=== PATIENT | female | born 1975 | race Caucasian/White ===

== ENCOUNTER 2017-01-31 19:27 | Emergency (ER) | payer MEDICAID ==
[2017-01-31] MEDS ORDERED: Metoprolol Tartrate 25 MG Tab PO ONE (20:27)
[2017-01-31] MEDS ORDERED: Ketorolac 30 MG/ML SDV IVPUSH ONE (20:28)
[2017-01-31] MEDS ORDERED: Sodium Chloride 0.9% 1,000 ML IV ONE (20:28)
[2017-01-31 20:31] LABS: CHLORIDE,CL 103 mmol/L (98-107); SODIUM,NA 139 mmol/L (136-145)
--- NOTE | 2017-01-31 20:38 | EDM.PDOC ---
ED HPI GENERAL MEDICAL PROBLEM - General Chief Complaint: General Stated Complaint: right shoulder,arm,extremity pain Time Seen by Provider: 01/31/17 19:43 Source of Information: Reports: Patient History Limitations: Reports: No Limitations - History of Present Illness INITIAL COMMENTS - FREE TEXT/NARRATIVE: Patient is essentially here for complaint of pain in right arm/shoulder/neck/ pectoral area. She thinks the pain was triggered when she was lifting heavy boxes at food back over a week ago. She has had the exact same pain before and was seen by Eyal Packer for this. At that time xrays of shoulder and neck were taken. Eventually pain resolved with conservative treatment. She does however mention having other intermittent issues during interview and ROS. These include: Intermittent sensation SOB. She felt a bit SOB in ER however O2 sats at 99-100% on room air. Sometimes gets nausea with this. Intermittent sharp brief pains in abdomen that last a minutes then go away. No specific timing or trigger. The pain "moves around a bit" prior to total resolution. She says it reminders her of her ovarian cysts that burst in the past. She denies having any nausea/emesis/stool change in association with pain. Intermittent spells where she has problems with a cough and choking sensation while eating. She "can't breathe" when they occur. Eventually she coughs so hard she sees stars and looses control of bowels. They resolve on own. Intermittent reflux like discomfort at night. Has continuing issues with puffiness/swelling of lower legs and hands that comes and goes. Patient is morbidly obese. History of hypertension, bipolar disorder, anxiety, diarrhea mixed with constipation. History of smoking. History of non- compliance. Was on BP meds in past but stopped them and has not been seen by a primary provider in quite some time for routine medical and preventive care. Her reason was lack of medical insurance. She now however does have medical insurance but has not been seen. right shoulder/arm/right chest Pain Score (Numeric/FACES): 10 - Related Data Allergies Allergy/AdvReac Type Severity Reaction Status Date / Time animal dander Allergy Other Verified 01/31/17 20:11 pollen extracts Allergy Sneezing Verified 01/31/17 19:29 Home Meds: Home Meds Albuterol [Take Home: Albuterol 6.7 GM, 1 INH Pack] 2 puff INH ASDIRECTED PRN [History] Calcium Carbonate [Tums] 1,000 mg PO Q2HR PRN 01/31/17 [History] Cyclobenzaprine [Flexeril] 10 mg PO TID PRN #20 tablet 01/31/17 [Rx] Ibuprofen 600 mg PO Q4HR PRN 01/31/17 [History] Naproxen Sodium [Aleve] 3 tab PO Q4HR PRN 01/31/17 [History] diphenhydrAMINE [Benadryl] 25 mg PO Q6H PRN 01/31/17 [History] traMADol [Ultram] 50 mg PO Q6H PRN #16 tablet 01/31/17 [Rx] Past Medical History Cardiovascular History: Reports: Hypertension Respiratory History: Reports: SOB Gastrointestinal History: Reports: Chronic Constipation, Chronic Diarrhea Musculoskeletal History: Reports: Other (See Below) (intermitent episodes of right neck/shoulder/arm pain) Psychiatric History: Reports: Anxiety, Bipolar Endocrine/Metabolic History: Reports: Obesity/BMI 30+ Social & Family History - Tobacco Use Years of Tobacco use: 7 - Alcohol Use Days Per Week of Alcohol Use: 1 - Recreational Drug Use Recreational Drug Use: No ED ROS GENERAL - Review of Systems Review Of Systems: See Below Constitutional: Reports: No Symptoms. Denies: Fever, Weakness, Fatigue, Night Sweats, Diaphoresis, Decreased Appetite, Weight Loss, Weight Gain HEENT: Reports: No Symptoms Respiratory: Reports: Shortness of Breath, Cough (has chronic cough). Denies: Wheezing, Pleuritic Chest Pain, Sputum, Hemoptysis Cardiovascular: Reports: Chest Pain (right pectoral area), Blood Pressure Problem, Edema (chronic waxing/waning ). Denies: Lightheadedness, Palpitations , PND, Syncope GI/Abdominal: Reports: Abdominal Pain (intermittent, see HPI. not present at this time. ), Constipation, Diarrhea, Nausea. Denies: Black Stool, Bloody Stool , Difficulty Swallowing, Hematemesis, Hematochezia, Melena, Vomiting : Reports: No Symptoms Musculoskeletal: Reports: Neck Pain, Shoulder Pain, Arm Pain (right), Muscle Stiffness. Denies: Back Pain, Leg Pain, Foot Pain, Joint Swelling Skin: Reports: No Symptoms Neurological: Reports: No Symptoms. Denies: Headache, Numbness, Paresthesia, Change in Speech Psychiatric: Reports: Anxiety ED EXAM, GENERAL - Physical Exam Exam: See Below Exam Limited By: No Limitations General Appearance: Alert, WD/WN, No Apparent Distress, Obese Eye Exam: Bilateral Eye: EOMI, PERRL Ears: Normal External Exam, Normal Canal Nose: Normal Inspection Throat/Mouth: Normal Inspection, Normal Lips, Normal Oropharynx, Normal Voice, No Airway Compromise Head: Atraumatic, Normocephalic Neck: Normal Inspection, Supple, Non-Tender, Full Range of Motion. No: Lymphadenopathy (L), Lymphadenopathy (R) Respiratory/Chest: No Respiratory Distress, Lungs Clear, Normal Breath Sounds, No Accessory Muscle Use, Chest Non-Tender Cardiovascular: Normal Peripheral Pulses, Regular Rate, Rhythm, No Murmur Peripheral Pulses: 2+: Radial (L), Radial (R) GI/Abdominal: Normal Bowel Sounds, Soft, Non-Tender (Female) Exam: Deferred Rectal (Female) Exam: Deferred Back Exam: Normal Inspection. No: CVA Tenderness (L), CVA Tenderness (R), Muscle Spasm, Paraspinal Tenderness, Vertebral Tenderness Extremities: Normal Range of Motion, Non-Tender, Pedal Edema (Patient is obese but also has mild bilateral edema). No: Joint Swelling, Increased Warmth Neurological: Alert, Oriented, Normal Cognition, Normal Gait, Normal Reflexes, No Motor/Sensory Deficits Psychiatric: Normal Affect, Normal Mood Skin Exam: Warm, Dry, Intact, Normal Color EKG INTERPRETATION EKG Date: 01/31/17 Time: 19:51 Rhythm: NSR Rate (Beats/Min): 97 Connell: Normal P-Wave: Present QRS: Other (mild conduction delay noted in I, III, AVL. This was not present in Patient's EKG from several years ago) ST-T: Normal QT: Normal Comparison: Change From Previous EKG Course - Vital Signs Last Recorded V/S: Last Vital Signs Temp 36.9 C 01/31/17 19:38 Pulse 87 01/31/17 20:42 Resp 19 01/31/17 20:40 BP 168/100 H 01/31/17 20:42 Pulse Ox 100 01/31/17 20:40 - Orders/Labs/Meds Orders: Active Orders 24 hr Category Date Time Status EKG Documentation Completion [RC] ASDIRECTED Care 01/31/17 19:58 Active Abdomen 2V AP Flat Upright [CR] Stat Exams 01/31/17 20:24 Ordered Chest 2V [CR] Stat Exams 01/31/17 19:57 Ordered UA W/MICROSCOPIC [URIN] Stat Lab 01/31/17 19:57 Uncollected Sodium Chloride 0.9% [Saline Flush] Med 01/31/17 19:57 Active 10 ml FLUSH ASDIRECTED PRN Saline Lock Insert [OM.PC] Stat Oth 01/31/17 19:57 Ordered EKG 12 Lead [EK] Stat Ther 01/31/17 19:58 Ordered Medication Orders Sodium Chloride (Saline Flush) 10 ml FLUSH ASDIRECTED PRN PRN Reason: Keep Vein Open Last Admin: 01/31/17 20:52 Dose: 10 ml Labs: Laboratory Tests 01/31/17 01/31/17 01/31/17 Range/Units 20:05 20:05 20:05 WBC 9.3 (4.0-10.2) K/uL RBC 5.52 H (3.77-5.09) M/uL Hgb 15.9 H (11.7-15.5) g/dL Hct 47.7 H (34.0-46.0) % MCV 86.4 (84.0-98.0) fL MCH 28.8 (28.2-33.3) pg MCHC 33.3 (31.7-36.0) g/dL RDW 14.3 H (11.2-14.1) % Plt Count 290 (150-350) K/uL Neut % (Auto) 65.0 (45.0-80.0) % Lymph % (Auto) 26.0 (10.0-50.0) % [place] % (Auto) 7.7 (2.0-14.0) % Eos % (Auto) 0.9 (0.0-5.0) % Baso % (Auto) 0.4 (0.0-2.0) % Neut # (Auto) 6.07 (1.40-7.00) K/uL Lymph # (Auto) 2.43 (0.50-3.50) K/uL [place] # (Auto) 0.72 (0.00-1.00) K/uL Eos # (Auto) 0.08 (0.00-0.50) K/uL Baso # (Auto) 0.04 (0.00-0.20) K/uL D-Dimer, Quantitative < 100 (0-400) ng/mL Sodium 139 (136-145) mmol/L Potassium 4.6 (3.5-5.1) mmol/L Chloride 103 (98-107) mmol/L Carbon Dioxide 28.2 (21.0-32.0) mmol/L BUN 18 (7-18) mg/dL Creatinine 0.78 (0.51-1.17) mg/dL Est Cr Clr Drug Dosing 72.35 mL/min Estimated GFR (MDRD) > 60 mL/min Glucose 136 H (74-106) mg/dL Calcium 8.7 (8.5-10.1) mg/dL Total Bilirubin 0.4 (0.2-1.0) mg/dL AST 68 H (15-37) U/L ALT 125 H (12-78) U/L Alkaline Phosphatase 125 H (46-116) IU/L Creatine Kinase 107 (26-308) U/L Creatine Kinase Index 0.3 (0.0-2.5) % CK-MB (CK-2) 0.30 (0.00-3.60) ng/mL Troponin I 0.000 (0.000-0.056) ng/mL [id number] Pept 159 H (0-125) pg/mL Total Protein 7.5 (6.4-8.2) g/dL Albumin 3.6 (3.4-5.0) g/dL Meds: Medications Generic Name Dose Route Start Last Admin Trade Name Freq PRN Reason Stop Dose Admin Sodium Chloride 10 ml 01/31/17 19:57 01/31/17 20:52 Saline Flush FLUSH 10 ml ASDIRECTED PRN Administration Keep Vein Open Discontinued Medications Generic Name Dose Route Start Last Admin Trade Name Freq PRN Reason Stop Dose Admin Diazepam 2 mg 01/31/17 20:29 01/31/17 20:42 Valium IVPUSH 01/31/17 20:30 2 mg ONETIME ONE Administration Diazepam 5 mg 01/31/17 21:32 Valium. PO 01/31/17 21:33 ONETIME ONE Sodium Chloride 1,000 mls @ 999 mls/hr 01/31/17 20:28 01/31/17 20:38 Normal Saline IV 01/31/17 21:28 999 mls/hr .BOLUS ONE Administration Ketorolac Tromethamine 30 mg 01/31/17 20:28 01/31/17 20:45 Toradol IVPUSH 01/31/17 20:29 30 mg ONETIME ONE Administration Magnesium Oxide 400 mg 01/31/17 21:33 Magnesium Oxide PO 01/31/17 21:34 ONETIME ONE Methylprednisolone Sodium Succinate 125 mg 01/31/17 21:14 Solu-Medrol IVPUSH 01/31/17 21:15 ONETIME ONE Metoprolol Tartrate 25 mg 01/31/17 20:27 01/31/17 20:42 Lopressor PO 01/31/17 20:28 25 mg ONETIME ONE Administration Pantoprazole Sodium 40 mg 01/31/17 21:13 Protonix Iv IVPUSH 01/31/17 21:14 ONETIME ONE - Radiology Interpretation Free Text/Narrative:: Chest/Abdominal films: no acute changes noted. - Re-Assessments/Exams Free Text/Narrative Re-Assessment/Exam: 01/31/17 21:34 Troponin/CKMB/Ddimer negative. CBC showed mild increase Hgb/Hct, suspect mild dehydration Chem showed glucose 136 AST 68, ALT 125, suspect fatty liver ProBNP 159 Patient's discomfort and BP improved after Valium/Toradol/Metoprolol given. Suspect musculo-skeletal cause for patient's main complaint. She also has a variety of issues that are ongoing, including chronic diarrhea and constipation/IBS. Significant amount of time spent discussing her ongoing chronic medical issues, including weight, GI complaints, intermittent sensation SOB. It was highly recommended that she institute an elimination diet which included recommendation to avoid wheat/gluten and possibly dairy for 4-6 weeks to see if this would help improve her multiple GI complaints. She also needs to follow up with her primary provider for her hypertension and above chronic issues. BP medications need to be restarted and response monitored. If shoulder/neck pain persist she may benefit from referral to PT. Additionally she may need further imaging such as MRI if pain persists. Given the GI complaints, referral to gastroenterology may be needed, with possible upper/lower endoscopy. Patient's complaint of SOB may be anxiety-related. It improved after medications above given. Plan at this time is to give oral Valium prior to discharge. Solu-medrol also given to help with musc/skel pain. She will be given Rx for Flexeril and Tramadol. If she cannot follow up with her old primary provider, she was given option to follow up with our hospital clinic. Departure - Departure Time of Disposition: 22:00 Disposition: Home, Self-Care 01 Condition: Good Clinical Impression: HTN, Benign essential hypertension, Anxiety, Anxiety Musculoskeletal arm pain Qualifiers: Laterality: right Qualified Code(s): M79.601 - Pain in right arm Muscle strain, shoulder region Qualifiers: Encounter type: initial encounter Laterality: right Qualified Code(s): S46.911A - Strain of unspecified muscle, fascia and tendon at shoulder and upper arm level, right arm, initial encounter IBS (irritable bowel syndrome) Qualifiers: Irritable bowel syndrome type: with both diarrhea and constipation Qualified Code(s): K58.2 - Mixed irritable bowel syndrome - Discharge Information Prescriptions: Cyclobenzaprine [Flexeril] 10 mg PO TID PRN #20 tablet PRN Reason: Spasms traMADol [Ultram] 50 mg PO Q6H PRN #16 tablet PRN Reason: Pain Instructions: Muscle Pain, Adult, Thoracic Strain, [id number] Forms: ED Department Discharge Additional Instructions: call center supervisor the Flexeril (muscle relaxant) and Tramadol (for pain) tomorrow. Make a follow up appointment for first available appointment at clinic. You need to be seen for: --Hypertension. Get restarted on blood pressure medication. Have appropriate follow up . --GI complaints. Including your episodes while eating in addition to intermittent abdominal pain. HIGHLY RECOMMEND dietary changes we discussed in the ER. However you may need referral to GI specialist to have upper and/or lower endoscopy for more thorough look at what is going on. --Neck/shoulder/arm discomfort. You may need referral to physical therapy. If pain worsens or does not go away, further imaging studies may be needed. - My Orders Last 24 Hours: My Active Orders 01/31/17 19:57 Chest 2V [CR] Stat UA W/MICROSCOPIC [URIN] Stat Sodium Chloride 0.9% [Saline Flush] 10 ml FLUSH ASDIRECTED PRN Saline Lock Insert [OM.PC] Stat 01/31/17 19:58 EKG Documentation Completion [RC] ASDIRECTED EKG 12 Lead [EK] Stat 01/31/17 20:24 Abdomen 2V AP Flat Upright [CR] Stat - Assessment/Plan Last 24 Hours: My Active Orders 01/31/17 19:57 Chest 2V [CR] Stat UA W/MICROSCOPIC [URIN] Stat Sodium Chloride 0.9% [Saline Flush] 10 ml FLUSH ASDIRECTED PRN Saline Lock Insert [OM.PC] Stat 01/31/17 19:58 EKG Documentation Completion [RC] ASDIRECTED EKG 12 Lead [EK] Stat 01/31/17 20:24 Abdomen 2V AP Flat Upright [CR] Stat
[2017-01-31] MEDS: Sodium Chloride 0.9% 10 ML Syringe FLUSH PRN ×2 (20:52→21:37)
[2017-01-31] MEDS ORDERED: Pantoprazole 40 MG Vial IVPUSH ONE (21:13)
[2017-01-31] MEDS ORDERED: methylPREDNISolone Sodium Succinate 125 MG/2 ML SDV IVPUSH ONE (21:14)
[2017-01-31] MEDS ORDERED: Diazepam 5 MG Tab PO ONE (21:32)
[2017-01-31] MEDS ORDERED: Magnesium Oxide 400 MG Tab PO ONE (21:33)
[2017-01-31] MEDS ORDERED: Furosemide 20 MG Tab PO ONE (21:45)
[2017-01-31 23:31] VITALS: BP 132/85
== END 2017-01-31 22:15 | disposition home or self-care (01) ==
LOC: LL.ED 19:27
DX: S46.911A Strain of unspecified muscle, fascia and tendon at shoulder and upper arm level, right arm, initial encounter (principal); K58.2 Mixed irritable bowel syndrome; I10 Essential (primary) hypertension; F41.9 Anxiety disorder, unspecified; M79.601 Pain in right arm; E66.9 Obesity, unspecified; Z91.048 Other nonmedicinal substance allergy status; X50.0XXA Overexertion from strenuous movement or load, initial encounter
CPT/HCPCS: 36415; 71020; 74020; 80053; 81001; 82550; 82553; 83735; 83880; 84484; 85025; 85379; 93005; 96361; 96374; 96375; 99284; A9270; C9113; J1885; J2930; J3360; J7030; J7050

== ENCOUNTER 2018-10-18 08:05 | Emergency (ER) | payer SELFPAY ==
[2018-10-18 08:40] LABS: CHLORIDE,CL 102 mmol/L (98-107); SODIUM,NA 139 mmol/L (136-145)
[2018-10-18 09:00] LABS: HEMOGLOBIN A1C 8.8 % (4.3-5.7)
[2018-10-18] MEDS ORDERED: Metoprolol Tartrate 25 MG Tab PO ONE (10:41)
--- NOTE | 2018-10-18 10:46 | EDM.PDOC ---
ED HPI GENERAL MEDICAL PROBLEM - General Chief Complaint: Lower Extremity Injury/Pain Stated Complaint: right lower leg pain Time Seen by Provider: 10/18/18 08:38 Source of Information: Reports: Patient History Limitations: Reports: No Limitations - History of Present Illness INITIAL COMMENTS - FREE TEXT/NARRATIVE: Patient comes in to ER with complaint of pain and redness involving right lower leg. Bumped leg about one week ago. Had some bruising. Several days ago noted redness/increased soreness in same area. Able to ambulate. No fevers/chills. No other complaints during ROS. Is morbidly obese. Patient seen here in 2017 and admitted at that time to having issues with blood pressure/lipids/blood sugars but was noncompliant with medications and medical follow up. Had medical assistance for awhile but let that lapse. Also history of IBS with intermittent constipation and loose stools. This was all reviewed at her last visit in 2017 but patient did not follow through with establishing consistent routine medical care. right lower leg Pain Score (Numeric/FACES): 5 - Related Data Allergies Allergy/AdvReac Type Severity Reaction Status Date / Time animal dander Allergy Other Verified 10/18/18 08:09 pollen extracts Allergy Sneezing Verified 10/18/18 08:09 Home Meds: Home Meds . [No Known Home Meds] 10/18/18 [History] Past Medical History Cardiovascular History: Reports: Hypertension Respiratory History: Reports: SOB Gastrointestinal History: Reports: Chronic Constipation, Chronic Diarrhea, Irritable Bowel Syndrome Psychiatric History: Reports: Anxiety, Bipolar Endocrine/Metabolic History: Reports: Diabetes, Type II, Obesity/BMI 30+ Dermatologic History: Reports: Other (See Below) (Superficial Thrombophlebitis) - Past Surgical History Other Musculoskeletal Surgeries/Procedures:: 10/18/18: new dx of right lower extrmity phlebitis Social & Family History - Tobacco Use Smoking Status *Q: Current Every Day Smoker Years of Tobacco use: 15 Packs/Tins Daily: 1 - Caffeine Use Caffeine Use: Reports: Coffee, Soda - Recreational Drug Use Recreational Drug Use: Yes Drug Use in Last 12 Months: No Other Recreational Drug Type: 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 Denies: Wheezing, Pleuritic Chest Pain, Cough, Sputum, Hemoptysis Cardiovascular: Reports: No Symptoms GI/Abdominal: Reports: Constipation (chronic), Diarrhea (chronic). Denies: Abdominal Pain, Bloody Stool, Nausea, Vomiting Genitourinary: Reports: No Symptoms Musculoskeletal: Reports: Other (right lower leg pain as noted in HPI) Skin: Reports: Erythema (right lower leg) Neurological: Reports: No Symptoms Psychiatric: Reports: No Symptoms (no acute changes reported. ) ED EXAM, GENERAL - Physical Exam Exam: See Below Exam Limited By: No Limitations General Appearance: Alert, No Apparent Distress, Obese Eye Exam: Bilateral Eye: EOMI, PERRL Nose: No: Nasal Deformity, Nasal Swelling, Nasal Drainage Throat/Mouth: Normal Voice, No Airway Compromise Head: Atraumatic, Normocephalic Neck: Supple, Non-Tender Respiratory/Chest: No Respiratory Distress, Lungs Clear, Normal Breath Sounds, No Accessory Muscle Use Cardiovascular: Normal Peripheral Pulses, No Murmur, Tachycardia (p) GI/Abdominal: Normal Bowel Sounds, Soft, Non-Tender (Female) Exam: Deferred Rectal (Female) Exam: Deferred Back Exam: No: CVA Tenderness (L), CVA Tenderness (R) Extremities: Normal Capillary Refill, Redness (area of redness right lower leg anterior lateral location. Some warmth over the redness, firm to touch, in pattern consistent with vascular distribution. ) Neurological: Alert, Oriented, Normal Cognition, No Motor/Sensory Deficits Psychiatric: Normal Affect, Normal Mood Skin Exam: Warm, Dry, Ecchymosis (right lower leg), Erythema (as noted above), Increased Warmth (as noted above). No: Mottled, Pallor, Petechiae, Wound/ Incision Course - Vital Signs Last Recorded V/S: Last Vital Signs Temp 37.1 C 10/18/18 08:05 Pulse 110 H 10/18/18 08:17 Resp 20 10/18/18 08:17 BP 173/138 H 10/18/18 08:17 Pulse Ox 99 10/18/18 08:17 - Orders/Labs/Meds Orders: Active Orders 24 hr Category Date Time Status Venous Doppler Lwr Ext Rt [US] Stat Exams 10/18/18 08:12 Ordered Labs: Laboratory Tests 10/18/18 10/18/18 10/18/18 Range/Units 08:15 08:15 08:15 WBC 8.1 (4.0-10.2) K/uL RBC 5.71 H (3.77-5.09) M/uL Hgb 16.5 H (11.7-15.5) g/dL Hct 49.9 H (34.0-46.0) % MCV 87.4 (84.0-98.0) fL MCH 28.9 (28.2-33.3) pg MCHC 33.1 (31.7-36.0) g/dL RDW 14.3 H (11.2-14.1) % Plt Count 242 (150-350) K/uL Neut % (Auto) 59.5 (45.0-80.0) % Lymph % (Auto) 30.3 (10.0-50.0) % Gray % (Auto) 8.0 (2.0-14.0) % Eos % (Auto) 1.2 (0.0-5.0) % Baso % (Auto) 1.0 (0.0-2.0) % Neut # (Auto) 4.82 (1.40-7.00) K/uL Lymph # (Auto) 2.46 (0.50-3.50) K/uL Gray # (Auto) 0.65 (0.00-1.00) K/uL Eos # (Auto) 0.10 (0.00-0.50) K/uL Baso # (Auto) 0.08 (0.00-0.20) K/uL D-Dimer, Quantitative 294 (0-400) ng/mL Sodium 139 (136-145) mmol/L Potassium 4.0 (3.5-5.1) mmol/L Chloride 102 (98-107) mmol/L Carbon Dioxide 25.3 (21.0-32.0) mmol/L BUN 15 (7-18) mg/dL Creatinine 0.67 (0.51-1.17) mg/dL Est Cr Clr Drug Dosing 86.51 mL/min Estimated GFR (MDRD) > 60 mL/min Glucose 216 H (74-106) mg/dL Hemoglobin A1c (4.3-5.7) % Calcium 9.1 (8.5-10.1) mg/dL Total Bilirubin 0.5 (0.2-1.0) mg/dL AST 62 H (15-37) U/L ALT 118 H (12-78) U/L Alkaline Phosphatase 164 H (46-116) IU/L Total Protein 7.5 (6.4-8.2) g/dL Albumin 3.3 L (3.4-5.0) g/dL Specimen Type Urine Color Urine Appearance Urine pH (5.0-9.0) Ur Specific [place] (1.005-1.030) Urine Protein (NEGATIVE) mg/dL Urine Glucose (UA) (NEGATIVE) mg/dL Urine Ketones (NEGATIVE) mg/dL Urine Occult Blood (NEGATIVE) Urine Nitrite (NEGATIVE) Urine Bilirubin (NEGATIVE) Urine Urobilinogen (0.2-1.0) E.U./dL Ur Leukocyte Esterase (NEGATIVE) Urine RBC /HPF Urine WBC /HPF Ur Epithelial Cells /LPF Urine Bacteria (NONE TO FEW) /HPF 10/18/18 10/18/18 Range/Units 08:25 08:50 WBC (4.0-10.2) K/uL RBC (3.77-5.09) M/uL Hgb (11.7-15.5) g/dL Hct (34.0-46.0) % MCV (84.0-98.0) fL MCH (28.2-33.3) pg MCHC (31.7-36.0) g/dL RDW (11.2-14.1) % Plt Count (150-350) K/uL Neut % (Auto) (45.0-80.0) % Lymph % (Auto) (10.0-50.0) % Gray % (Auto) (2.0-14.0) % Eos % (Auto) (0.0-5.0) % Baso % (Auto) (0.0-2.0) % Neut # (Auto) (1.40-7.00) K/uL Lymph # (Auto) (0.50-3.50) K/uL Gray # (Auto) (0.00-1.00) K/uL Eos # (Auto) (0.00-0.50) K/uL Baso # (Auto) (0.00-0.20) K/uL D-Dimer, Quantitative (0-400) ng/mL Sodium (136-145) mmol/L Potassium (3.5-5.1) mmol/L Chloride (98-107) mmol/L Carbon Dioxide (21.0-32.0) mmol/L BUN (7-18) mg/dL Creatinine (0.51-1.17) mg/dL Est Cr Clr Drug Dosing mL/min Estimated GFR (MDRD) mL/min Glucose (74-106) mg/dL Hemoglobin A1c 8.8 H (4.3-5.7) % Calcium (8.5-10.1) mg/dL Total Bilirubin (0.2-1.0) mg/dL AST (15-37) U/L ALT (12-78) U/L Alkaline Phosphatase (46-116) IU/L Total Protein (6.4-8.2) g/dL Albumin (3.4-5.0) g/dL Specimen Type Urinblad Urine Color Dark yellow Urine Appearance Slightly cloudy Urine pH 5.0 (5.0-9.0) Ur Specific [place] >= 1.030 (1.005-1.030) Urine Protein >=300 H (NEGATIVE) mg/dL Urine Glucose (UA) 100 H (NEGATIVE) mg/dL Urine Ketones Negative (NEGATIVE) mg/dL Urine Occult Blood Negative (NEGATIVE) Urine Nitrite Negative (NEGATIVE) Urine Bilirubin Negative (NEGATIVE) Urine Urobilinogen 0.2 (0.2-1.0) E.U./dL Ur Leukocyte Esterase Negative (NEGATIVE) Urine RBC 0-5 /HPF Urine WBC 5-10 H /HPF Ur Epithelial Cells Few /LPF Urine Bacteria Many H (NONE TO FEW) /HPF - Re-Assessments/Exams Free Text/Narrative Re-Assessment/Exam: 10/18/18 10:51 A1c 8.1 Elevated LFTs, suspect most likely to be secondary to fatty liver disease. Normal WBC. UA did not show obvious changes suggesting UTI. US study of right lower leg showed changes consistent with superficial thrombophlebitis. No evidence of DVT noted. DDimer also negative. Prolonged time spent discussing ongoing chronic health concerns and need to appropriately address these with diet/lifestyle modifications as well as need to initiate appropriate medication therapy. Single dose of Metoprolol given to patient to assist with blood pressure. Patient reports that her usual pulse is around 115-120 when rate noted on monitor in ER. Offer was made to set patient up with clinic appointment to re-establish a point of primary care so that she could be started on medications for BP/ diabetes, etc. Patient agreeable. Appointment made for 11:30 this morning. Precautions and care plan regarding superficial thrombophlebitis also reviewed. She is to follow up as needed if worsening symptoms are noted. Departure - Departure Time of Disposition: 10:56 Disposition: Home, Self-Care 01 Condition: Good Clinical Impression: Non-compliance, Morbid obesity, HTN, Benign essential hypertension, Anxiety, Elevated LFTs, History of bipolar disorder Superficial thrombophlebitis Qualifiers: Superficial thrombophlebitis-Involved body area: lower extremity Laterality: right Qualified Code(s): I80.01 - Phlebitis and thrombophlebitis of superficial vessels of right lower extremity Contusion of right lower leg Qualifiers: Encounter type: initial encounter Qualified Code(s): S80.11XA - Contusion of right lower leg, initial encounter IBS (irritable bowel syndrome) Qualifiers: Irritable bowel syndrome type: with both diarrhea and constipation Qualified Code(s): K58.2 - Mixed irritable bowel syndrome Diabetes Qualifiers: Diabetes mellitus type: type 2 Diabetes mellitus retirement insulin use: without terminal operator use Diabetes mellitus complication status: with unspecified complications Qualified Code(s): E11.8 - Type 2 diabetes mellitus with unspecified complications - Discharge Information *PRESCRIPTION DRUG MONITORING PROGRAM REVIEWED*: Not Applicable *COPY OF PRESCRIPTION DRUG MONITORING REPORT IN PATIENT [place]: Not Applicable Instructions: Phlebitis, [id number] Referrals: PCP,None [Primary Care Provider] - Additional Instructions: Follow up at appointment today at clinic 11:30am. They may do additional testing today, including blood work. Hand in forms for medical assistance [place] to continue gentle activity/walking. Elevate affected leg when at rest and apply warm compresses (water bottles over leg wrapped in towel is ok) frequently to help with discomfort. Take Aleve twice daily or Ibuprofen 400 mg every 6 hours for now to help with the symptoms. Follow up closely with clinic for this as well as your other chronic health problems. Follow up in ER as needed for sudden worsening problems. - My Orders Last 24 Hours: My Active Orders 10/18/18 08:12 Venous Doppler Lwr Ext Rt [US] Stat - Assessment/Plan Last 24 Hours: My Active Orders 10/18/18 08:12 Venous Doppler Lwr Ext Rt [US] Stat
[2018-10-18 18:56] VITALS: BP 178/62
== END 2018-10-18 11:26 | disposition home or self-care (01) ==
LOC: LL.ED 08:05
DX: I80.01 Phlebitis and thrombophlebitis of superficial vessels of right lower extremity (principal); S80.11XA Contusion of right lower leg, initial encounter; K58.2 Mixed irritable bowel syndrome; E11.8 Type 2 diabetes mellitus with unspecified complications; I10 Essential (primary) hypertension; F17.210 Nicotine dependence, cigarettes, uncomplicated; E66.01 Morbid (severe) obesity due to excess calories; F41.9 Anxiety disorder, unspecified; F31.9 Bipolar disorder, unspecified; R79.89 Other specified abnormal findings of blood chemistry; Z91.19 Patient's noncompliance with other medical treatment and regimen; W22.8XXA Striking against or struck by other objects, initial encounter
CPT/HCPCS: 36415; 80053; 81001; 83036; 85025; 85379; 93971; 99284-25; A9270-GY

== ENCOUNTER → 2019-06-05 | Outpatient (CLI) | payer MEDICAID ==
--- NOTE | 2019-06-05 16:23 | PCM.CST ---
- MARINE REPORTER Pre-Procedure Exam Name of Procedure: Reports: Cardiolyte Stress Test Protocol: Reports: Modified Eyal Referring/Regular Provider: Eyal Packer Performing Physician: Wilmar Meléndez Provisional Diagnosis: Reports: Chest Pain HPI: The patient has been referred by her regular provider, Eyal Packer PA-C, at the [facility] in [place], for evaluation of a one month history of nonspecific 5/10 left-sided and retrosternal chest "ache" with symptoms occurring several times per day. Possible additional nonspecific radiation of her discomfort to her shoulders bilaterally, left greater than right, with additional history of nonspecific facial and tongue paresthesias about one month ago with no neurological deficits or evaluation at that time. The patient denies any chest pressure, heart flutter, dizziness, orthostasis, orthopnea, diaphoresis, recent decreased exercise tolerance, or any other anginal-type symptoms. No recent history of abdominal pain, heartburn, nausea, diarrhea, melena, gross hematochezia, or any food intolerance, including fatty foods, etc.. The patient also denies any recent fever, cough, wheezing, dyspnea, etc.. Cardiac Risk Factors: Reports: Diabetes Mellitus, Hyperlipidemia, Hypertension, Tobacco History (Patient has been smoking about one pack per day since about age 32). Denies: Alcohol History, Family History of Heart Disease Blood Pressure Systolic: 140 Blood Pressure Diastolic: 90 Pulse Rate (adult): 93 Respiratory Rate: 20 O2 Sat on Room Air at Rest: 94 Stated Height: 1.57 m Stated Weight: 126.099 kg - Physical Exam Neck: Reports: Normal Inspection, Supple, Non-Tender, Full Range of Motion. Denies: Carotid Bruit, Lymphadenopathy (L), Lymphadenopathy (R), Thyromegaly Respiratory: No Respiratory Distress, Lungs Clear, Normal Breath Sounds, No Accessory Muscle Use, Chest Non-Tender. No: Pleural Rub, Retractions Cardiovascular: Reports: Normal Peripheral Pulses, Regular Rate, Rhythm, No Gallop, No JVD, No Murmur, No Rub. Denies: No Edema (Dependent edema as below) , Gallop/S3, Gallop/S4, Friction Rub GI/Abdominal Exam: Reports: Normal Bowel Sounds, Soft, Non-Tender, No Organomegaly, No Distention, No Abnormal Bruit, No Mass. Denies: Guarding Extremities: Reports: Normal Range of Motion, Non-Tender, Normal Capillary Refill, Pedal Edema (+1-+2 bilateral pedal/pretibial edema). Denies: Paulina's Sign Neuro Exam (Abbreviated): Reports: Alert, Oriented, CN II-XII Intact, Normal Cognition, Normal Gait, No Motor/Sensory Deficits The risks and benefits of the procedure were explained to th: Yes - EKG (prior to procedure) Rate (beats/min): 94 CO/PQ Interval: 0.12 seconds from his initial CO interval with mild diffuse biphasic P waves and mild poor R-wave progression in the anterior leads. No delta waves noted. QRS Interval: 0.10 seconds representing possible repolarization changes versus lead placement versus borderline incomplete right bundle branch block, which is new since last EKG Rhythm: Normal sinus [place]: Neutral Arrhythmia: None EKG Comparison: Change From Previous EKG (As above since 05/27/19) Interpretation Comments: 1. No acute ischemic changes 2. Probable left atrial enlargement 3. Borderline repolarization changes versus incomplete right bundle branch block - MARINE REPORTER Results Reason for Termination of Procedure: Reports: Patient Fatigue, Reaching Targeted Heart Rate Duration of Exercise (min): 8 Duration of Exercise (sec): 32 Adama Scale (x/20): 18 Maximum Heart Rate: 155 70% Max Predicted: 124 85% Max Predicted: 150 100% Max Predicted: 177 Maximum Blood Pressure Systolic: 190 Diastolic: 90 Blood Pressure at Discharge Systolic: 140 Diastolic: 76 Lowest O2 Sat During Exercise: 94 ST Changes: Reports: None Arrhythmia: Reports: None Interpretation: No acute ischemic changes by exercise portion of EKG. Return of EKG to Baseline: Yes Interventions Needed: Reports: None - Final Diagnosis (1) Chest pain SNOMED Code(s): 44850222 ICD Code: R07.9 - CHEST PAIN, UNSPECIFIED Status: Acute Priority: High Current Visit: Yes Qualifiers: Chest pain type: other chest pain Qualified Code(s): R07.89 - Other chest pain; R07.8 - Other chest pain Annotation/Comment: Negative exercise portion for cardiac ischemia. Follow-up by regular provider as per discharge instructions with cardiology consultation and/or cardiac workup depending on her clinical course. Possible anxiety component to her current symptoms. Continue risk factor modification by her regular provider as below. (2) Hyperlipidemia SNOMED Code(s): 05794546 ICD Code: E78.5 - HYPERLIPIDEMIA, UNSPECIFIED Status: Chronic Priority: Medium Current Visit: Yes Qualifiers: Hyperlipidemia type: unspecified Qualified Code(s): E78.5 - Hyperlipidemia , unspecified Annotation/Comment: Continue to observe closely by her regular provider with weight loss in moderation advisable. Currently under therapy with medication adjustment depending on her clinical course. (3) Tobacco abuse counseling SNOMED Code(s): 168775463, [id number], [id number] ICD Code: Z71.6 - TOBACCO ABUSE COUNSELING Status: Chronic Priority: Medium Current Visit: Yes Annotation/Comment: No secondhand tobacco smoke exposure. She apparently already has Quit line information at home. Tobacco cessation strongly encouraged with her also present during today's evaluation. (4) Mixed anxiety and depressive disorder SNOMED Code(s): 939275173 ICD Code: F41.8 - OTHER SPECIFIED ANXIETY DISORDERS Status: Chronic Priority: Medium Current Visit: Yes Annotation/Comment: Currently under therapy. Possible anxiety component to her above symptoms. Patient did become somewhat irritated when discussing her tobacco use, risk factors, previous medical history, etc., however she did seem to understand the reasoning for the above questions, etc., which were needed for her proper evaluation, after today' s test was more extensively explained. Continue to observe closely by her regular provider with medication adjustment as needed. Note history of additional history of panic attacks and bipolar disorder per medical records obtained from [facility] in [place]. (5) Diabetes mellitus SNOMED Code(s): 69029269 ICD Code: E11.9 - TYPE 2 DIABETES MELLITUS WITHOUT COMPLICATIONS Status: Chronic Priority: Medium Current Visit: Yes Qualifiers: Diabetes mellitus type: type 2 Diabetes mellitus intermediate insulin use: without rn long term care use Diabetes mellitus complication status: without complication Qualified Code(s): E11.9 - Type 2 diabetes mellitus without complications Annotation/Comment: Under current medical therapy. Continue to observe closely by her regular provider. (6) Diabetes SNOMED Code(s): 96246131 ICD Code: E11.9 - TYPE 2 DIABETES MELLITUS WITHOUT COMPLICATIONS Status: Acute Current Visit: Yes Qualifiers: Diabetes mellitus type: type 2 Diabetes mellitus intermediate insulin use: without rn long term care use Diabetes mellitus complication status: with unspecified complications (7) HTN, Benign essential hypertension SNOMED Code(s): 6289020 ICD Code: I10 - ESSENTIAL (PRIMARY) HYPERTENSION Status: Chronic Priority : Medium Current Visit: Yes Annotation/Comment: Currently under therapy. Borderline hypertensive response to exercise at the end of this procedure but not problematic at this time. Continue to observe closely by her regular provider. - Other Patient Instructions: Maintain a 50% maximum exercise restriction as directed until your cardiac status has been clarified and you have been released by your regular provider. No medication changes at this time. Follow-up with your regular provider in one week for reevaluation and discussion of Cardiolite scan , etc. results. Extensive precautions were given to the patient and her , who are in agreement with the treatment plan. Tobacco cessation was once again strongly encouraged.
== END ==
LOC: LL.NM 08:51
PROVIDERS: ATTEND Physician Assistant
DX: I20.8 Other forms of angina pectoris (principal)
CPT/HCPCS: 78452; 93017; A9500

== ENCOUNTER 2020-09-25 19:37 | Emergency (ER) | payer MEDICAID ==
[2020-09-25 19:41] VITALS: PULSE 99
--- NOTE | 2020-09-25 20:10 | EDM.PDOC ---
ED HPI GENERAL MEDICAL PROBLEM - General Chief Complaint: Laceration Stated Complaint: LACERATION #4 FINGER LEFT Time Seen by Provider: 09/25/20 19:50 Source of Information: Reports: Patient History Limitations: Reports: No Limitations - History of Present Illness INITIAL COMMENTS - FREE TEXT/NARRATIVE: She is seen for evaluation of a laceration to her left 4th finger. She cut it on a broken glass this evening. Had trouble getting the bleeding to stop at home. No pain in the finger now. No other injury. She is otherwise without complaint. History of DM, HTN and anxiety. BP has been running high, but working with her primary to get it down. Treatments HAND CLIPPER: Reports: Dressing(s) Left Finger-Ring Pain Score (Numeric/FACES): 1 - Related Data Allergies Allergy/AdvReac Type Severity Reaction Status Date / Time animal dander Allergy Other Verified 09/25/20 19:44 pollen extracts Allergy Sneezing Verified 09/25/20 19:44 Home Meds: Home Meds DULoxetine [Cymbalta] 20 mg PO DAILY 09/25/20 [History] LORazepam [Lorazepam] 1 mg PO BID PRN 09/25/20 [History] Losartan [Cozaar] 25 mg PO DAILY 09/25/20 [History] hydroCHLOROthiazide [Hydrochlorothiazide] 25 mg PO DAILY 09/25/20 [History] metFORMIN HCl [Metformin HCl] 1,000 mg PO BID 09/25/20 [History] Past Medical History Cardiovascular History: Reports: Hypertension Respiratory History: Reports: SOB Gastrointestinal History: Reports: Chronic Constipation, Chronic Diarrhea, Irritable Bowel Syndrome Musculoskeletal History: Reports: Other (See Below) Psychiatric History: Reports: Anxiety, Bipolar Endocrine/Metabolic History: Reports: Diabetes, Type II, Obesity/BMI 30+ Dermatologic History: Reports: Other (See Below) (Superficial Thrombophlebitis) - Past Surgical History Other Musculoskeletal Surgeries/Procedures:: 10/18/18: new dx of right lower ex trmity phlebitis Social & Family History - Caffeine Use Caffeine Use: Reports: Coffee, Soda ED ROS GENERAL - Review of Systems Review Of Systems: See Below Constitutional: Denies: Fever, Chills HEENT: Denies: Rhinitis, Sinus Problem, Throat Pain Respiratory: Denies: Shortness of Breath, Cough Cardiovascular: Denies: Chest Pain, Palpitations Endocrine: Denies: Fatigue GI/Abdominal: Reports: Nausea. Denies: Abdominal Pain, Vomiting : Denies: Dysuria, Frequency, Urgency Psychiatric: Reports: Anxiety ED EXAM, SKIN/RASH Exam: See Below Text/Narrative:: 1/2 cm angled superficial laceration on the ulnar aspedt of the left 4th finger over the distal phalanx. No other laceration. Full movement and normal strength in the finger. Hand is otherwise unremarkable. Exam Limited By: No Limitations General Appearance: Alert, WD/WN Course - Vital Signs Text/Narrative:: Blleding is stopped with simple pressure. Wound is explored with no evidence of foreign body. Skin is cleansed and the wound closed with durabond. No complications. Last Recorded V/S: Last Vital Signs Temp 36.2 C 09/25/20 19:38 Pulse 99 09/25/20 19:38 Resp 18 09/25/20 19:38 BP 131/109 H 09/25/20 19:38 Pulse Ox 98 09/25/20 19:38 Departure - Departure Time of Disposition: 20:11 Disposition: Home, Self-Care 01 Condition: Good Clinical Impression: Laceration of finger of left hand without damage to nail - Discharge Information *PRESCRIPTION DRUG MONITORING PROGRAM REVIEWED*: Not Applicable *COPY OF PRESCRIPTION DRUG MONITORING REPORT IN PATIENT [place]: Not Applicable Instructions: Laceration Care, Adult Referrals: Eyal Packer PA [Primary Care Provider] - Additional Instructions: Keep wound dry tonight. Normal activity starting tomorrow. Monitor for signs of infection (increasing redness, drainage, fever). Follow up if this occurs. Tylenol or Advil as needed for pain. Sepsis Event Note (ED) - Evaluation Sepsis Screening Result: No Definite Risk - Focused Exam Vital Signs: Vital Signs Temp Pulse Resp BP Pulse Ox 09/25/20 19:38 36.2 C 99 18 131/109 H 98 - Problem List & Annotations (1) Laceration of finger of left hand without damage to nail SNOMED Code(s): 525868487, [id number] Code(s): S61.219A - LACERATION W/O FB OF UNSP FINGER W/O DAMAGE TO NAIL, INIT Status: Acute - Assessment/Plan Plan: Keep wound dry tonight. Normal activity starting tomorrow. Monitor for signs of infection (increasing redness, drainage, fever). Follow up if this occurs. Tylenol or Advil as needed for pain.
[2020-09-25 20:53] VITALS: BP 147/98
== END 2020-09-25 20:20 | disposition home or self-care (01) ==
LOC: LL.ED 19:37
DX: S61.215A Laceration without foreign body of left ring finger without damage to nail, initial encounter (principal); I10 Essential (primary) hypertension; E11.9 Type 2 diabetes mellitus without complications; E66.9 Obesity, unspecified; Z91.048 Other nonmedicinal substance allergy status; Z79.899 Other long term (current) drug therapy; Z79.84 Long term (current) use of oral hypoglycemic drugs; W25.XXXA Contact with sharp glass, initial encounter
CPT/HCPCS: 12001; 99282; 99282-25

== ENCOUNTER 2022-08-31 11:09 | Day surgery (SDC) | payer MEDICAID ==
[~2022-08-31 11:09] MED LIST: Midazolam 1 MG/ML 2 ML SDV ONE; Propofol 200 MG/20 ML SDV ONE
[2022-08-31] MEDS ORDERED: Lactated Ringers 1,000 ML IV SCH (11:15)
[2022-08-31] MEDS ORDERED: Sodium Chloride 0.9% 10 ML Syringe FLUSH PRN (11:26)
[2022-08-31 15:45] VITALS: BP 100/87; PULSE 82
== END 2022-08-31 14:20 | disposition home or self-care (01) ==
LOC: LL.SDS 11:09
PROVIDERS: ATTEND Surgery
DX: Z12.11 Encounter for screening for malignant neoplasm of colon (principal); E78.00 Pure hypercholesterolemia, unspecified; E11.69 Type 2 diabetes mellitus with other specified complication; E11.40 Type 2 diabetes mellitus with diabetic neuropathy, unspecified; F41.9 Anxiety disorder, unspecified; K58.9 Irritable bowel syndrome, unspecified; E66.01 Morbid (severe) obesity due to excess calories; F17.210 Nicotine dependence, cigarettes, uncomplicated; F31.9 Bipolar disorder, unspecified; F90.9 Attention-deficit hyperactivity disorder, unspecified type; E66.3 Overweight; Z91.048 Other nonmedicinal substance allergy status; Z79.899 Other long term (current) drug therapy; Z79.84 Long term (current) use of oral hypoglycemic drugs; Z79.82 Long term (current) use of aspirin; Z68.41 Body mass index [BMI] 40.0-44.9, adult
CPT/HCPCS: 82947; 93005; J2250; J2704; J7120

== ENCOUNTER 2024-05-20 20:24 | Emergency (ER) | payer MEDICAID ==
[2024-05-20] MEDS ORDERED: Sodium Chloride 0.9% 10 ML Syringe FLUSH PRN (20:30)
[2024-05-20 20:45] LABS: BASOPHILS ABSOLUTE AUTO 0.04 K/uL (0.00-0.20); BASOPHILS PERCENT AUTO 0.4 % (0.0-2.0); EOSINOPHILS PERCENT AUTO 0.9 % (0.0-5.0); HEMATOCRIT 51.9 % (34.0-46.0); IMMATURE GRAN ABSOLUTE AUTO 0.05 10^3/uL (0.00-0.50); IMMATURE GRAN PERCENT AUTO 0.5 % (0.0-5.0); LYMPHOCYTES ABSOLUTE AUTO 3.38 K/uL (0.50-3.50); LYMPHOCYTES PERCENT AUTO 31.1 % (10.0-50.0); MEAN CORPUSCULAR HEMOGLOBIN 29.7 pg (28.2-33.3); MEAN CORPUSCULAR HGB CONC 32.8 g/dL (31.7-36.0); MEAN CORPUSCULAR VOLUME 90.7 fL (84.0-98.0); MONOCYTES ABSOLUTE AUTO 0.84 K/uL (0.00-1.00); MONOCYTES PERCENT AUTO 7.7 % (2.0-14.0); NEUTROPHILS ABSOLUTE AUTO 6.45 K/uL (1.40-7.00); NEUTROPHILS PERCENT AUTO 59.4 % (45.0-80.0); PLATELET COUNT,PLT 268 K/uL (150-350); RED BLOOD CELL COUNT 5.72 M/uL (3.77-5.09); RED CELL DISTRIBUTION WIDTH 14.2 % (11.2-14.1); WHITE BLOOD CELL COUNT,WBC 10.9 K/uL (4.0-10.2)
[2024-05-20 21:10] LABS: ALANINE AMINOTRANSFERASE,ALT 17 U/L (12-78); ALBUMIN 3.6 g/dL (3.4-5.0); ALKALINE PHOSPHATASE 122 IU/L (46-116); ASPARTATE AMNIOTRANSFERASE,AST 18 U/L (15-37); BILIRUBIN TOTAL 0.8 mg/dL (0.2-1.0); BLOOD UREA NITROGEN,BUN 8 mg/dL (7-18); CALCIUM 9.3 mg/dL (8.5-10.1); CHLORIDE,CL 101 mmol/L (98-107); CREATININE 0.77 mg/dL (0.51-1.17); GLUCOSE RANDOM 144 mg/dL (70-99); LIPASE 24 U/L (16-77); MAGNESIUM 1.5 mg/dL (1.8-2.4); POTASSIUM,K 3.7 mmol/L (3.5-5.1); PROTEIN TOTAL,TP 7.2 g/dL (6.4-8.2); SODIUM,NA 138 mmol/L (136-145)
[2024-05-20 21:17] VITALS: BP 128/77; PULSE 81
[2024-05-20 21:17] LABS: ESTIMATED GFR 95 mL/min (>=60)
[2024-05-20] MEDS: Take Home: LORazepam 0.5 MG Tab, 5 Tab Pack PO ONE (21:28)
== END 2024-05-20 21:50 | disposition home or self-care (01) ==
LOC: LL.ED 20:24
DX: R07.89 Other chest pain (principal); F41.9 Anxiety disorder, unspecified; E78.00 Pure hypercholesterolemia, unspecified; I10 Essential (primary) hypertension; E11.9 Type 2 diabetes mellitus without complications; Z79.82 Long term (current) use of aspirin; Z79.84 Long term (current) use of oral hypoglycemic drugs; Z79.899 Other long term (current) drug therapy; Z91.048 Other nonmedicinal substance allergy status
CPT/HCPCS: 36415; 71046; 80053; 83690; 83735; 84484; 85025; 85610; 93005; 99285; A9270-GY